=== PATIENT | female | born 1990 | race African-American/Black ===

== ENCOUNTER 2019-12-03 02:39 | Emergency (ER) | payer OTHER ==
[~2019-12-03] VITALS: Ht 154.9 cm; Wt 61.0 kg
[2019-12-03 02:48] VITALS: Ht 154.9 cm; Wt 61.0 kg
[2019-12-03 03:18] VITALS: BP 128/78
== END 2019-12-03 03:18 | disposition home or self-care (01) ==
LOC: ED 02:39
DX: R10.2 Pelvic and perineal pain (principal); Z02.79 Encounter for issue of other medical certificate

== ENCOUNTER 2019-12-03 03:58 | Emergency (ER) | payer OTHER ==
[~2019-12-03] VITALS: Ht 154.9 cm; Wt 61.0 kg
[2019-12-03 04:12] VITALS: Ht 154.9 cm; Wt 61.0 kg
[2019-12-03 04:37] VITALS: BP 150/75
== END 2019-12-03 04:37 | disposition home or self-care (01) ==
LOC: ED 03:58
DX: B85.3 Phthiriasis (principal); Z88.0 Allergy status to penicillin